=== PATIENT | female | born 1940 | race Two or more races ===

== ENCOUNTER → 2017-03-21 | Outpatient (CLI) | payer MEDICARE, OTHER | END | disposition home or self-care (01) | LOC: RADNMMAIN 09:52 | PROVIDERS: ATTEND Internal Medicine ==

== ENCOUNTER → 2017-04-25 | Outpatient (CLI) | payer MEDICARE, OTHER ==
--- NOTE | 2017-04-26 10:52 | NM ---
EXAMINATION TYPE: NM thyroid image w uptake DATE OF EXAM: 04/26/2017 COMPARISON: NONE HISTORY: E07.9 disorder of thyroid TECHNIQUE: Thyroid iodine uptake is calculated and images performed after the oral administration of 305 uCi 1-123 Capsule. FINDINGS: There is normal distribution of activity throughout the gland. The 4 hour iodine uptake is calculated at 12.9% (normal range 8-14%). The 24-hour iodine uptake is calculated at 39.9% (normal r jeffy 15-35%). Thyroid scintigraphy reveals no evidence for hot or cold nodules. IMPRESSION: 1. 24-hour uptake is mildly increased. Correlate clinically with thyroid function testing.
== END | disposition home or self-care (01) ==
LOC: RADNMMAIN 09:38
PROVIDERS: ATTEND Internal Medicine
DX: E07.9 Disorder of thyroid, unspecified (principal)
CPT/HCPCS: 78014; A9516